=== PATIENT | male | born 1995 | race Caucasian/White ===

== ENCOUNTER 2017-04-29 14:05 | Emergency (ER) | payer OTHER ==
[~2017-04-29] VITALS: Wt 76.0 kg
[2017-04-29] MEDS ORDERED: HC1C30 TOP (14:31)
--- NOTE | 2017-04-29 14:44 | ERD ---
ER Documentation Chief Complaint Date/Time DATE: 04/29/17 TIME: 14:43 Chief Complaint BUG BITE TO LEFT AND RIGHT FOOT HPI 21-year-old male who presents to the emergency room with insect bites to bilateral lower extremities. Describes slightly raised papular lesions that are pruritic with similar symptoms to coworkers. He denies any recent lip swelling or tongue swelling or difficulty breathing. ROS All systems reviewed and are negative except as per history of present illness. Medications Home Meds Active Scripts Hydrocortisone* Topical (Hydrocortisone* Topical) 1%-28.35 Gm Cream..g., 1 APPLIC TOP Q6 Y for ITCHING, #1 TUB Prov:JENAE IBARRA MD 04/29/17 PMhx/Soc Medical and Surgical Hx: pt denies Medical Hx, pt denies Surgical Hx Hx Alcohol Use: No Hx Substance Use: No Smoking Status: Never smoker FmHx Family History: No diabetes Physical Exam Vitals Vital Signs Date Time Temp Pulse Resp B/P Pulse Ox O2 Delivery O2 Flow Rate FiO2 04/29/17 14:10 98.0 78 18 132/60 99 Physical Exam General: Well developed, well nourished, no acute distress Head: Normocephalic, atraumatic. Eyes: EOM intact ENT: Moist mucous membranes Neck: Full ROM Respiratory: No respiratory distress Cardiovascular: Good capillary refil Abdominal: Nondistended : Deferred MSK: No edema, no unilateral swelling, 5/5 strength Neurologic: Alert and oriented, moving all extremities, normal speech, steady gait Skin: Raised papular lesions to the lower extremities very consistent with insect bites, no surrounding erythema warmth or tenderness. No lesions to the interdigital spaces Psych: Normal mood Procedures/MDM The patient's clinical exam is very consistent with insect bite of unclear origin. Low concern for bedbugs. The patient does have coworkers with similar exposures. His boss is aware. I believe the patient will benefit from topical steroids for itch control. No evidence of superimposed infection. I advised washing sleeping close as well as sheets indicates that this is bedbugs but again very low clinical concern for that process. No evidence of scabies. The patient can be safely discharged home. We discussed follow up with the patient's primary care doctor within 24 to 48 hours as needed. We also discussed return to the emergency room for worsening symptoms or worsening condition. Outpatient referral: [None required] Discharge Medications: Hydrocortisone 1% cream Departure Diagnosis: Primary Impression: Insect bite Encounter type: initial encounter Qualified Code: W57.XXXA - Insect bite, initial encounter Condition: Good Patient Instructions: Insect Bite [facility] YOU HAVE RECEIVED A MEDICAL SCREENING EXAM AND THE RESULTS INDICATE THAT YOU DO NOT HAVE A CONDITION THAT REQUIRES URGENT TREATMENT IN THE EMERGENCY DEPARTMENT. FURTHER EVALUATION AND TREATMENT OF YOUR CONDITION CAN WAIT UNTIL YOU ARE SEEN IN YOUR DOCTORS OFFICE WITHIN THE NEXT 1-2 DAYS. IT IS YOUR RESPONSIBILITY TO MAKE AN APPOINTMENT FOR FOLOW-UP CARE. IF YOU HAVE A PRIMARY DOCTOR --you should call your primary doctor and schedule an appointment IF YOU DO NOT HAVE A PRIMARY DOCTOR YOU CAN CALL OUR PHYSICIAN REFERRAL HOTLINE AT IF YOU CAN NOT AFFORD TO SEE A PHYSICIAN YOU CAN CHOSE FROM THE FOLLOWING [facility] [address] [facility]. [facility] [address] [facility] [address] [facility] [address] [facility] [address] [facility]. [facility] [address] [facility]. [facility] YOU HAVE RECEIVED A MEDICAL SCREENING EXAM AND THE RESULTS INDICATE THAT YOU DO NOT HAVE A CONDITION THAT REQUIRES URGENT TREATMENT IN THE EMERGENCY DEPARTMENT. FURTHER EVALUATION AND TREATMENT OF YOUR CONDITION CAN WAIT UNTIL YOU ARE SEEN IN YOUR DOCTORS OFFICE WITHIN THE NEXT 1-2 DAYS. IT IS YOUR RESPONSIBILITY TO MAKE AN APPOINTMENT FOR FOLOW-UP CARE. IF YOU HAVE A PRIMARY DOCTOR --you should call your primary doctor and schedule and appointment IF YOU DO NOT HAVE A PRIMARY DOCTOR YOU CAN CALL OUR PHYSICIAN REFERRAL HOTLINE AT . IF YOU CAN NOT AFFORD TO SEE A PHYSICIAN YOU CAN CHOSE FROM THE FOLLOWING [facility]: [facility] [address] [place] [address] [facility] [address] [place] [address] [address] Additional Instructions: Call your primary care doctor TOMORROW for an appointment during the next 1 WEEK.Tell the litigation legal secretary that you were referred from this facility.See the doctor sooner or return here if your condition worsens before your appointment time. JENAE IBARRA MD Apr 29, 2017 14:44
== END 2017-04-29 15:39 | disposition home or self-care (01) ==
LOC: FTE 14:05
DX: S90.861A Insect bite (nonvenomous), right foot, initial encounter (principal); W57.XXXA Bitten or stung by nonvenomous insect and other nonvenomous arthropods, initial encounter; Y92.9 Unspecified place or not applicable
CPT/HCPCS: 99283

== ENCOUNTER 2017-05-08 14:52 | Emergency (ER) | payer OTHER ==
[~2017-05-08] VITALS: Ht 165.1 cm; Wt 76.5 kg
[~2017-05-08 14:52] MED LIST: HC1C30 TOP
[2017-05-08 14:56] VITALS: Ht 165.1 cm; Wt 76.5 kg
[2017-05-08] MEDS ORDERED: NAPR-260 PO (15:00)
[2017-05-08] MEDS ORDERED: HC30CR25 TOP (15:00)
--- NOTE | 2017-05-08 15:04 | ERD ---
ER Documentation Chief Complaint Date/Time DATE: 05/08/17 TIME: 15:03 Chief Complaint Complains of a bite to right leg HPI 21-year-old male comes in with a bite wound to the right upper leg that he noted yesterday. This patient works at [employer] and he states that he has had a similar bite to his lower extremities previously. He states that this is slightly more painful, erythematous. He has not had any fevers or chills with this. Denies headache. ROS All systems reviewed and are negative except as per history of present illness. Medications Home Meds Active Scripts Hydrocortisone* Topical (Hydrocortisone* Topical) 2.5%-28.3 Gm Cream..g., 1 APPLIC TOP BID, #1 TUB Prov:PIA LONDON PA-C 05/08/17 Naproxen* (Naprosyn*) 500 Mg Tablet, 500 MG PO BID Y for PAIN AND/OR INFLAMMATION, #30 TAB Prov:PIA LONDON PA-C 05/08/17 Hydrocortisone* Topical (Hydrocortisone* Topical) 1%-28.35 Gm Cream..g., 1 APPLIC TOP Q6 Y for ITCHING, #1 TUB Prov:JENAE IBARRA MD 04/29/17 Allergies Allergies: Coded Allergies: No Known Allergy (Unverified , 05/08/17) PMhx/Soc Hx Alcohol Use: No Hx Substance Use: No Physical Exam Vitals Vital Signs Date Time Temp Pulse Resp B/P Pulse Ox O2 Delivery O2 Flow Rate FiO2 05/08/17 14:56 97.5 89 20 155/70 96 Physical Exam General: Well-developed, well-nourished. The patient appears in no acute distress. HEENT: Head is normocephalic, atraumatic. No scleral icterus. Neck: Supple. Nontender. Lungs: Clear to auscultation. Normal air movement. Heart: Regular rate and rhythm. S1 and S2 are normal. No murmurs, gallops, or rubs. Abdomen: Nondistended. Extremities: No clubbing or cyanosis. Moving extremities x 4. No weakness. Neurologic: Alert and oriented 3. No focal deficits. Normal speech and gait. Skin: Right lateral leg has an erythematous macular rash, it is intermittently spread approximately 5 cm, mildly tender with deep palpation, there are no vesicles. Procedures/MDM 21-year-old male comes in with what appears to be insect sting versus bite that is benign. There is an underlying abscess, cellulitis, I do not see any evidence of shingles at this time. There are no systemic findings, including fever, headache. This appears to be benign, and will be given him anti- inflammatories for pain and erythema, he will be also stop the hydrocortisone which was given tamoxifen for insect bites will be increased to 2.5% cream. Departure Diagnosis: Primary Impression: Insect sting Condition: Good Patient Instructions: Insect Bites and Stings Additional Instructions: Call your primary care doctor TOMORROW for an appointment during the next 1-2 days.See the doctor sooner or return here if your condition worsens before your appointment time. PIA LONDON PA-C May 08, 2017 15:04
== END 2017-05-08 14:58 | disposition home or self-care (01) ==
LOC: E/R 14:52
DX: S70.361A Insect bite (nonvenomous), right thigh, initial encounter (principal); W57.XXXA Bitten or stung by nonvenomous insect and other nonvenomous arthropods, initial encounter; Y92.9 Unspecified place or not applicable
CPT/HCPCS: 99283